=== PATIENT | male | born 1975 | race Caucasian/White ===

== ENCOUNTER 2021-02-20 10:22 | Emergency (ER) | payer OTHER ==
[~2021-02-20] VITALS: Ht 177.8 cm; Wt 84.4 kg
--- OUTSIDE RECORDS SUMMARY | 2021-02-20 15:20 | XMS ---
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 Windy has no Care Guidelines for this patient. Eliza VISIT COUNT (12 MO.) 6 [facility] Tr[place] [address] Anthony Jason TOTAL 7 NOTE: Visits indicate total known visits. ED/UCC VISIT TRACKING (12 MO.) [facility] COMPLAINT: - CHEST/ABD PAIN 01/24/2021 03:[address] [facility] TYPE: Emergency DIAGNOSES: 0. MENTAL EVAL 01/02/2021 18:[address] [facility] TYPE: Emergency DIAGNOSES: 0. RIGHT THIGH PAIN 12/31/2020 13:[address] [facility] TYPE: Emergency DIAGNOSES: 0. RT THIGH REDNESS SWELLING 12/22/2020 10:[address] [facility] TYPE: Emergency DIAGNOSES: 0. WOUND CARE 12/19/2020 11:[address] [facility] DIAGNOSES: 0. HAND AND LEG LAC 06/05/2020 11:[address] [facility] DIAGNOSES: 0. RIGHT ARM REDNESS AND WARM INPATIENT VISIT TRACKING (12 MO.) No inpatient visits to display in this time frame [id number]
--- NOTE | 2021-02-21 15:59 | EKG ---
[facility] [address] [place], [place] [address] Signed Normal sinus rhythm Normal ECG No previous ECGs available Confirmed by JAMES GOLDEN MD ([id number]) on 02/21/2021 3:59:34 PM Electronically Signed By: JAMES GOLDEN MD 02/21/21 1559 PATIENT NAME: LONNIE ROCHE Electrocardiogram DATE OF : 71 PHYSICIAN: JAMES GOLDEN MD REPORT #: [id number] REPORT IS CONFIDENTIAL AND NOT TO BE RELEASED WITHOUT AUTHORIZATION
== END 2021-02-20 14:55 | disposition home or self-care (01) ==
LOC: ED 10:22
DX: R07.9 Chest pain, unspecified (principal)
CPT/HCPCS: 71045; 80053; 83690; 84484; 85025; 85379; 93005; 93010; 96374; 99285-25; J2405